=== PATIENT | female | born 1950 | race Caucasian/White ===

== ENCOUNTER 2023-01-11 13:08 | Outpatient (AMB) | payer MEDICARE, SELFPAY ==
[2023-01-11 13:19] VITALS: BP 134/60; PULSE 59; O2SAT 97; BMI 27.6
--- NOTE | 2023-01-11 13:19 | A.OFFVIS_ITS ---
Intake Vital Signs 01/11/23 13:19 Height 5 ft 4 in Weight 160 lb 14.999 oz BMI 27.6 BP 134/60 Blood Pressure Location Lt brachial Position Sitting Pulse 59 Pulse Source Pulse Oximeter Pulse Oximetry (%) 97 Oxygen Delivery Method Room Air Intake Visit Reasons: COPD Surveillance System Monitor Required: No Allergies No Known Allergies Allergy (Verified 01/11/23 13:22) HPI HPI Comments History of Present Illness Details The patient is here for pulmonary evaluation. The patient is a 72-year-old woman with a known history of COPD currently participating in the lung cancer screening program. She was initially found out to have a primary lung cancer in the left lung and she underwent surgery. That was successful surgery she would not need any chemo radiation. 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 She recently had surgery in July 2022 and she is due for CAT scan some other time in January 2023. She does complaint of dyspnea on exertion. Moderate severity. She does not use any inhalers. We did review her PFTs from 2020 where demonstrated a hhyo-fq-oibyrepr COPD with some air trapping. The patient also had as brief walking oximetry and she was visit be visibly dyspneic with a dyspnea score of 5 out of time. The patient maintain a sat of 94%. She will benefit from pulmonary rehabilitation. The patient does not require oxygen supplementation. I do believe that based on her exam that she will benefit from a maintenance inhaler. I did provide a prescription for breztri. She can trial a 4 months to see how she does. [facility] Medical History (Updated 01/11/23 @ 21:17 by Juan Francisco Johnosn MD) Dyspnea Lung cancer COPD (chronic obstructive pulmonary disease) Social History (Updated 01/11/23 @ 13:25 by MIKEY Lozano) Patient Tobacco Use Status: Former Tobacco user Tobacco use type: Cigarette Years Smoked: 40 Years Review of Systems Const Denies fever(s) ENT Denies change in voice and Denies throat swelling Card Denies chest pain and Reports dyspnea on exertion Resp Reports cough and Reports dyspnea on exertion GI Reports no additional complaints Musc Reports no additional complaints Skin/Breast Denies rash Neuro Reports no additional complaints Endo Reports no additional complaints Alon/Lymph Denies lymphadenopathy Aller/Immun Denies throat swelling Physical Exam Vital Signs: Last Vital Signs Pulse 59 01/11/23 13:19 BP 134/60 01/11/23 13:19 Pulse Ox 97 01/11/23 13:19 Oxygen Delivery Method Room Air 01/11/23 13:19 BMI result Body Mass Index 27.6 Const General: comfortable Neck Neck: Yes supple Chest Chest palpation & inspection: normal inspection of the chest Resp Effort & Inspection: normal respiratory effort and prolonged expiratory phase Auscultation: wheezes and diminished lung sounds Cardio Heart sounds: S1 normal heart sound present and S2 normal heart sound present GI Palpation (GI): Soft to palpation Skin General skin exam: no rashes or lesions noted Extrem General: Yes no clubbing, cyanosis or edema Assessment & Plan Assessment & Plan (1) COPD (chronic obstructive pulmonary disease): Code(s): J44.9 - Chronic obstructive pulmonary disease, unspecified Qualifiers: COPD type: emphysema Emphysema type: centrilobular Qualified Code(s): J43.2 - Centrilobular emphysema (2) Dyspnea: Code(s): R06.00 - Dyspnea, unspecified Qualifiers: Dyspnea type: dyspnea on exertion Qualified Code(s): R06.09 - Other forms of dyspnea Plan PFTs start Pulmonary rehab start breztri inhaler (sample) [place] [facility] [place] F/U 2-3 months Orders: Orders Pulmonary Rehab Today J44.9 - Chronic obstructive pulmonary disease, unspecified PFT pulmonary function test Today J44.9 - Chronic obstructive pulmonary disease, unspecified Medications: New kjrkukqjok-vhfmlmqf-imdgexkuzo 160-9-4.8 mcg/actuation (Breztri Aerosphere) 2 inhalations inhalation BID 30 days 10.7 grams 11RF Coding Level of Care Code New Pt Level 4 (81708) Diagnoses Centrilobular emphysema J43.2 COPD type: emphysema Emphysema type: centrilobular Dyspnea on exertion R06.09 Dyspnea type: dyspnea on exertion Time Spent (min) 38
== END 2023-01-11 13:53 | disposition home or self-care (01) ==
PROVIDERS: PCP Internal Medicine; Visit Provider Hospitalist
DX: J43.2 Centrilobular emphysema (principal); R06.09 Other forms of dyspnea
CPT/HCPCS: 99204

== ENCOUNTER → 2023-01-11 13:08 | Outpatient (BNVA) | payer MEDICARE, SELFPAY | PROVIDERS: PCP Internal Medicine; Visit Provider Hospitalist ==

== ENCOUNTER 2023-03-14 13:04 | Outpatient (AMB) | payer MEDICARE, SELFPAY ==
[2023-03-14 13:15] VITALS: PULSE 72; O2SAT 96; BMI 26.1
--- NOTE | 2023-03-14 13:15 | A.OFFVIS_ITS ---
Intake Vital Signs 03/14/23 13:15 Height 5 ft 4 in Weight 152 lb BMI 26.1 Pulse 72 Pulse Source Pulse Oximeter Pulse Oximetry (%) 96 Oxygen Delivery Method Room Air Intake Visit Reasons: COPD Music Worker Required: No Allergies No Known Allergies Allergy (Verified 03/14/23 13:16) HPI HPI Comments History of Present Illness0 Details The patient is a 72-year-old woman with a known history of COPD currently participating in the lung cancer screening program. She was initially found out to have a primary lung cancer in the left lung and she underwent surgery. That was successful surgery she would not need any chemo radiation. 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 She recently had surgery in July 2022 and she is due for CAT scan some other time in January 2023. She does complaint of dyspnea on exertion. Moderate severity. She does not use any inhalers. We did review her PFTs from 2020 where demonstrated a zbxm-cc-dyzcemma COPD with some air trapping. The patient also had as brief walking oximetry and she was visit be visibly dyspneic with a dyspnea score of 5 out of time. The patient maintain a sat of 94%. She will benefit from pulmonary rehabilitation. The patient does not require oxygen supplementation. I do believe that based on her exam that she will benefit from a maintenance inhaler. I did provide a prescription for breztri. She can trial for a month to see how she does. 03/14/2023 the patient is here for a pulm onary follow-up visit. Overall the patient is doing very well. She has been participating in pulmonary rehabilitation and has been very helpful. In addition to that she has been using the maintenance inhaler with good effect. She is yet to actually get a prescription so hopefully it does not too expensive. If it is she can always call the office we can try to find something more reasonable. In the meantime she did underwent CT scan of the chest at [facility]. She did have postoperative changes. Although, she is had significant weight loss and therefore she was found for PET scan for restaging. I did personally review the PET scan although has not been officially read. I did not see any significant activity in the thorax which is reassuring. I did see that there was significant muscle inflammation throughout. She does take a statin so I wonder if this is related to a medication effect or if there was a muscular inflammatory condition going on. She will be following up with her thoracic surgeon and also should follow-up with primary care. Otherwise the patient is doing well from a respiratory status follow-up in 6 months. [facility] Medical History (Updated 01/11/23 @ 21:17 by Juan Francisco Johnson MD) Dyspnea Lung cancer COPD (chronic obstructive pulmonary disease) Social History (Updated 01/11/23 @ 13:25 by MIKEY Lozano) Patient Tobacco Use Status: Former Tobacco user Tobacco use type: Cigarette Years Smoked: 40 Years Review of Systems Const Denies fever(s), Reports poor appetite and Reports weight loss ENT Denies change in voice and Denies throat swelling Card Denies chest pain and Reports dyspnea on exertion Resp Reports cough and Reports dyspnea on exertion GI Reports no additional complaints Musc Reports as per HPI, Reports back pain and Reports myalgias Skin/Breast Denies rash Neuro Reports no additional complaints Endo Reports no additional complaints Alon/Lymph Denies lymphadenopathy Aller/Immun Denies throat swelling Physical Exam Vital Signs: Last Vital Signs Pulse 72 03/14/23 13:15 Pulse Ox 96 03/14/23 13:15 Oxygen Delivery Method Room Air 03/14/23 13:15 BMI result Body Mass Index 26.1 Const General: comfortable Neck Neck: Yes supple Chest Chest palpation & inspection: normal inspection of the chest Resp Effort & Inspection: normal respiratory effort Auscultation: no wheezes and diminished lung sounds Cardio Heart sounds: S1 normal heart sound present and S2 normal heart sound present GI Palpation (GI): Soft to palpation Skin General skin exam: no rashes or lesions noted Extrem General: Yes no clubbing, cyanosis or edema Assessment & Plan Assessment & Plan (1) COPD (chronic obstructive pulmonary disease): Code(s): J44.9 - Chronic obstructive pulmonary disease, unspecified Qualifiers: COPD type: emphysema Emphysema type: centrilobular Qualified Code(s): J43.2 - Centrilobular emphysema (2) Dyspnea: Code(s): R06.00 - Dyspnea, unspecified Qualifiers: Dyspnea type: dyspnea on exertion Qualified Code(s): R06.09 - Other forms of dyspnea Plan continue Pulmonary rehab continue Breztri inhaler CT chest at [facility] [place] likely in 6 months start azithromycin MWF x 6-8 weeks reviewed PET scan. Has not been officially read, but, appears to have significant muscle related inflammation. Needs to have that address ?statin related or a connective tissue process. F/U 6 months Medications: New azithromycin Take 1 tablet on Tuesday/Tuesday/Tuesday 250 mg PO 3XW 28 days 12 tabs 1RF K21.9 - Gastro-esophageal reflux disease without esophagitis Coding Level of Care Code Est Pt Level 4 (36397) Diagnoses Centrilobular emphysema J43.2 COPD type: emphysema Emphysema type: centrilobular Dyspnea on exertion R06.09 Dyspnea type: dyspnea on exertion Time Spent (min) 17
== END 2023-03-14 13:39 | disposition home or self-care (01) ==
PROVIDERS: PCP Internal Medicine; Visit Provider Hospitalist
DX: J43.2 Centrilobular emphysema (principal); R06.09 Other forms of dyspnea
CPT/HCPCS: 99214

== ENCOUNTER → 2023-03-14 13:04 | Outpatient (BNVA) | payer MEDICARE, SELFPAY | PROVIDERS: PCP Internal Medicine; Visit Provider Hospitalist | DX: J44.9 Chronic obstructive pulmonary disease, unspecified (principal); J43.2 Centrilobular emphysema; R06.00 Dyspnea, unspecified; C34.12 Malignant neoplasm of upper lobe, left bronchus or lung; C34.11 Malignant neoplasm of upper lobe, right bronchus or lung | CPT/HCPCS: 99212 ==

== ENCOUNTER 2023-05-26 08:30 | Outpatient (RCR) | payer MEDICARE, SELFPAY | END 2023-06-13 10:12 | disposition home or self-care (01) | LOC: HO.PR 08:30 | PROVIDERS: PCP Internal Medicine; Visit Provider Hospitalist | DX: J44.9 Chronic obstructive pulmonary disease, unspecified (principal) | CPT/HCPCS: 94625; 94626; 99215 ==

== ENCOUNTER 2023-09-13 13:46 | Outpatient (AMB) | payer MEDICARE, SELFPAY ==
[2023-09-13 13:53] VITALS: PULSE 62; O2SAT 98; BMI 26.6
--- NOTE | 2023-09-13 13:53 | MHC.OFFVIS ---
Vital Signs 09/13/23 13:53 Height 5 ft 4 in Weight 155 lb BMI 26.6 Pulse 62 Pulse Source Pulse Oximeter Pulse Oximetry (%) 98 Oxygen Delivery Method Room Air Intake Visit Reasons: COPD Supreme Court Judge Required: No Allergies No Known Allergies Allergy (Verified 09/13/23 13:54) HPI Comments Details: The patient is a 73-year-old woman with a known history of COPD currently participating in the lung cancer screening program. She was initially found out to have a primary lung cancer in the left lung and she underwent surgery. That was successful surgery she would not need any chemo radiation. 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 She recently had surgery in July 2022 and she is due for CAT scan some other time in January 2023. She does complaint of dyspnea on exertion. Moderate severity. She does not use any inhalers. We did review her PFTs from 2020 where demonstrated a rarq-vg-ejofamgb COPD with some air trapping. The patient also had as brief walking oximetry and she was visit be visibly dyspneic with a dyspnea score of 5 out of time. The patient maintain a sat of 94%. She will benefit from pulmonary rehabilitation. The patient does not require oxygen supplementation. I do believe that based on her exam that she will benefit from a maintenance inhaler. I did provide a prescription for breztri. She can trial for a month to see how she does. 03/14/2023 the patient is here for a pulmonary follow-up visit. Overall the patient is doing very well. She has been participating in pulmonary rehabilitation and has been very helpful. In addition to that she has been using the maintenance inhaler with good effect. She is yet to actually get a prescription so hopefully it does not too expensive. If it is she can always call the office we can try to find something more reasonable. In the meantime she did underwent CT scan of the chest at [facility]. She did have postoperative changes. Although, she is had significant weight loss and therefore she was found for PET scan for restaging. I did personally review the PET scan although has not been officially read. I did not see any significant activity in the thorax which is reassuring. I did see that there was significant muscle inflammation throughout. She does take a statin so I wonder if this is related to a medication effect or if there was a muscular inflammatory condition going on. She will be following up with her thoracic surgeon and also should follow-up with primary care. Otherwise the patient is doing well from a respiratory status follow-up in 6 months. 09/13/2023 the patient is here for a pulmonary follow-up visit. Overall she is doing very well. She is continued to participate in pulmonary rehabilitation. She is found it very affecting beneficial. She did finish the 1st part and now she is on maintenance. She is going to continue to participate. As far as inhaler she has Breztri, although is not been covered anymore. The patient does have a prescription at home. She is using this time. I think is reasonable specially with a history atrial fibrillation. Respiratory reina she is doing well. If she starts noticing that she needs a more often them will talk about a different type of maintenance medication that she can not tolerate little better with her AFib. The patient does have a CT scan of chest scheduled at [facility]. It will be for next week. Will have to follow-up after that. She is also following closely with thoracic surgery. She does have a ground glassy lesion in the upper lung area. The PET scan was reassuring. She still having some muscle discomfort. She was taken off the statin. She will follow-up closely with her primary care. [facility] Medical History (Updated 01/11/23 @ 21:17 by Juan Francisco Johnson MD) Dyspnea Lung cancer COPD (chronic obstructive pulmonary disease) Social History (Updated 01/11/23 @ 13:25 by MIKEY Lozano) Patient Tobacco Use Status: Former Tobacco user Tobacco use type: Cigarette Years Smoked: 40 Years Review of Systems Const Denies fever(s) ENT Denies change in voice and Denies throat swelling Card Denies chest pain and Reports dyspnea on exertion Resp Reports cough and Reports dyspnea on exertion GI Reports no additional complaints Musc Reports as per HPI, Reports back pain and Reports myalgias Skin/Breast Denies rash Neuro Reports no additional complaints Endo Reports no additional complaints Alon/Lymph Denies lymphadenopathy Aller/Immun Denies throat swelling Physical Exam Vital Signs: Last Vital Signs Pulse 62 09/13/23 13:53 Pulse Ox 98 09/13/23 13:53 Oxygen Delivery Method Room Air 09/13/23 13:53 BMI result Body Mass Index 26.6 Const General: comfortable Neck Neck: Yes supple Chest Chest palpation & inspection: normal inspection of the chest Resp Effort & Inspection: normal respiratory effort Auscultation: no wheezes and diminished lung sounds Cardio Heart sounds: S1 normal heart sound present and S2 normal heart sound present GI Palpation (GI): Soft to palpation Skin General skin exam: no rashes or lesions noted Extrem General: Yes no clubbing, cyanosis or edema Assessment & Plan Assessment & Plan (1) COPD (chronic obstructive pulmonary disease): Code(s): J44.9 - Chronic obstructive pulmonary disease, unspecified Category: Medical Qualifiers: COPD type: emphysema Emphysema type: centrilobular Qualified Code(s): J43.2 - Centrilobular emphysema (2) Dyspnea: Code(s): R06.00 - Dyspnea, unspecified Category: Medical Qualifiers: Dyspnea type: dyspnea on exertion Qualified Code(s): R06.09 - Other forms of dyspnea Plan continue Pulmonary rehab continue Breztri inhaler LJ as needed CT chest at [facility] [place] F/U 6 months with PFTs Orders: Orders PFT pulmonary function test 9 Months J43.2 - Centrilobular emphysema Coding Level of Care Code Est Pt Level 4 (61265) Diagnoses Centrilobular emphysema J43.2 COPD type: emphysema Emphysema type: centrilobular Dyspnea on exertion R06.09 Dyspnea type: dyspnea on exertion Time Spent (min) 17
== END 2023-09-13 14:10 | disposition home or self-care (01) ==
PROVIDERS: PCP Internal Medicine; Visit Provider Hospitalist
DX: J43.2 Centrilobular emphysema (principal); R06.09 Other forms of dyspnea
CPT/HCPCS: 99214

== ENCOUNTER → 2023-09-13 13:46 | Outpatient (BNVA) | payer MEDICARE, SELFPAY | PROVIDERS: PCP Internal Medicine; Visit Provider Hospitalist | DX: J43.2 Centrilobular emphysema (principal); R06.09 Other forms of dyspnea | CPT/HCPCS: 99212 ==

== ENCOUNTER 2024-06-06 09:50 | Outpatient (REF) | payer MEDICARE, SELFPAY ==
[2024-06-06 09:44] VITALS: PULSE 86; O2SAT 99
--- NOTE | 2024-06-06 10:26 | PFT_ITS ---
Flows: FEV1: 81 % of predicted at 1.70 L FVC: 101 % of predicted at 2.73 L FEV1/FVC: 62 % Bronchodilator response: Absent Volumes: Total lung capacity: 83 % of predicted at 4.01 L Residual volume: 70 % of predicted at 1.38 L Slow vital capacity: 93 % of predicted at 2.63 L Expiratory reserve volume: 122 % of predicted at 0.83 L Diffusion capacity: Mildly decreased. Impression: Btdt-ia-jwzopmyl obstructive ventilatory defect with no bronchodilator response. Decreased diffusion capacity suggests emphysema. MTDD
--- OUTSIDE RECORDS SUMMARY | 2024-06-06 11:36 | XMS_ITS | Clinical Summary ---
Author Organization [facility] Address [address] [place] [address] Care Team Providers Care Joint Terminal Attack Controller Name Role Phone Jw Sotelo MD Primary Care Provider [phone] Social History Tobacco Use Types Packs/Day Years Used Date Smoking Tobacco: Never Assessed Comments Unknown Sex and Gender Information Value Date Recorded Sex Assigned at Not on file Legal Sex Female 10:45 AM EST Gender Identity Not on file Sexual Orientation Not on file Plan of Treatment Health Maintenance Due Date Last Done Comments Breast Cancer Screening 1950 DTaP,Tdap,and Td Vaccines (1 - Tdap) 06/09/1970 Pneumococcal Vaccine: 50+ Years (1 of 2 - PCV) 06/09/1970 Zoster Vaccines (1 of 2) 06/09/1970 Cholesterol Screening (Lipid Panel) 03/15/2022 Colorectal Cancer Screening: Colonoscopy 03/15/2022 Depression Screening 03/15/2022 Falls Risk Assessment 03/15/2022 Hepatitis C Screening 03/15/2022 Osteoporosis Screening (Bone Density Screening) 03/15/2022 Social Influencers of Health Screening 03/15/2022 COVID-19 Vaccine ( season) 2023 02/02/2021, 06/14/2020, 05/24/2020 Influenza Vaccine (#1) 2023 , 02/15/2019, 02/08/2018, Additional history exists Hypertension/CHF/CAD Annual BMP Blood Test 04/20/2024 RSV Immunization Patients 60+ Years Old (1 - 1-dose 75+ series) 06/09/2026 HIB Vaccines Aged Out No longer eligi ble based on patient's age to complete this topic HPV Vaccines Aged Out No longer eligi ble based on patient's age to complete this topic Hepatitis A Vaccines Aged Out No long er eligible based on patient's age to complete this topic Hepatitis B Vaccines Aged Out No long er eligible based on patient's age to complete this topic IPV Vaccines Aged Out No longer eligi ble based on patient's age to complete this topic MMR Vaccines Aged Out No longer eligi ble based on patient's age to complete this topic Meningococcal ACWY Vaccine Aged Out N o longer eligible based on patient's age to complete this topic Meningococcal B Vacine Aged Out No lo nger eligible based on patient's age to complete this topic RSV Immunization Patients Under 20 months Aged Out No longer eligible based on patient's age to complete this topic Varicella Vaccines Aged Out No longer eligible based on patient's age to complete this topic Care Teams Joint Terminal Attack Controller Relationship Specialty Start Date End Date Jw Sotelo MD [address] [place], [place] PCP - General Statement Clerk 05/03/17
--- OUTSIDE RECORDS SUMMARY | 2024-06-06 11:36 | XMS_ITS | Clinical Summary ---
Author Organization [facility] Address [address] [place] [address] Care Team Providers Care Tractor Trailer Driver Name Role Phone Jw Sotelo MD Primary Care Provider Allergies No known active allergies Medications Medication Sig Dispensed Refills Start Date End Date Status simvastatin (ZOCOR) tablet 40 mg Take 40 mg by mouth every night at bedtime. 0 Active metoprolol tartrate (LOPRESSOR) 100 MG tablet Take by mouth 2 (two) times a day. 0 Active FLUoxetine (PROZAC) 20 MG capsule Take 20 mg by mouth daily. 0 Active hydrochlorothiazide (HYDRODIURIL) tablet 25 mg Take 25 mg by mouth daily. 0 Active aspirin EC 81 MG tablet Take 81 mg by mouth daily. 0 Active Active Problems Problem Noted Date Diagnosed Date Leukocytosis 05/03/2017 Tobacco use 05/03/2017 Weight loss 05/03/2017 Social History Tobacco Use Types Packs/Day Years Used Date Smoking Tobacco: Every Day Cigarettes 1 Smokeless Tobacco: Never Alcohol Use Standard Drinks/Week Comments Yes 1 (1 standard drink = 0.6 oz pur e alcohol) Sex and Gender Information Value Date Recorded Sex Assigned at Not on file Gender Identity Not on file Sexual Orientation Not on file Job Start Date Occupation Industry Not on file Not on file Not on file Last Filed Vital Signs Vital Sign Reading Time Taken Comments Blood Pressure 168/68 10/31/2018 8:56 AM EDT Pulse 67 10/31/2018 8:56 AM EDT Temperature 36.3 ??C (97.3 ??F) 10/31/2018 8:56 AM ED T Respiratory Rate - - Oxygen Saturation - - Inhaled Oxygen Concentration - - Weight 76.2 kg (168 lb) 10/31/2018 8:56 AM EDT Height 161.3 cm (5' 3.5 ) 10/31/2018 8:56 AM EDT Body Mass Index 29.29 10/31/2018 8:56 AM EDT Plan of Treatment Health Maintenance Due Date Last Done Comments Hepatitis C Screening 1950 COVID-19 Vaccine (#1) 1950 Pneumococcal Vaccine (1 of 2 - PCV) 06/09/1957 Depression Screening 1963 Preventative Health Evaluation 06/09/1969 DTap / Tdap / Td (1 - Tdap) 06/09/1970 Colon Cancer Screening (Colonoscopy) 06/09/1996 Breast Cancer Screening (Mammogram) 06/09/2001 Shingrix-Zoster Vaccine (1 of 2) 06/09/2001 Fall Risk Assessment 06/09/2016 Osteoporosis Screening (DEXA Scan) 06/09/2016 Influenza Vaccine (#1) 2023 RSV Adult > 60+ Yrs or Pregn ant (1 - 1-dose 75+ series) 06/09/2026 Hepatitis B Vaccines Aged Out No long er eligible based on patient's age to complete this topic RSV Ped < 20 months Aged Out No longe r eligible based on patient's age to complete this topic Care Teams Tractor Trailer Driver Relationship Specialty Start Date End Date Jw Sotelo MD [address] [facility] [address] [place], [place] [id number] PCP - General Water Aerobics Instructor 05/03/17
== END 2024-06-06 09:51 | disposition home or self-care (01) ==
LOC: HO.RESP 09:50
PROVIDERS: PCP Internal Medicine; Visit Provider Hospitalist
DX: J43.2 Centrilobular emphysema (principal)
CPT/HCPCS: 94010; 94640; 94727; 94729

== ENCOUNTER → 2024-06-06 10:26 | Outpatient (BNV) | payer MEDICARE, SELFPAY | PROVIDERS: PCP Internal Medicine; Visit Provider Internal Medicine Pulmonary Disease | DX: J43.2 Centrilobular emphysema (principal) | CPT/HCPCS: 94060; 94727; 94729 ==

== ENCOUNTER 2024-07-04 10:22 | Outpatient (AMB) | payer MEDICARE, SELFPAY ==
[2024-07-04 10:27] VITALS: BP 138/60; PULSE 89; O2SAT 100; BMI 25.0
--- NOTE | 2024-07-04 10:27 | A.OFFVIS_ITS ---
Vital Signs 07/04/24 10:27 Height 5 ft 4 in Weight 145 lb 8.081 oz BMI 25.0 BP 138/60 Blood Pressure Location Rt brachial Position Sitting Pulse 89 Pulse Source Pulse Oximeter Pulse Oximetry (%) 100 Oxygen Delivery Method Room Air Intake Visit Reasons: COPD/PFT Follow Up Allergies No Known Allergies Allergy (Verified 07/04/24 10:30) HPI Comments Details: The patient is a 74-year-old woman with a known history of COPD currently participating in the lung cancer screening program. She was initially found out to have a primary lung cancer in the left lung and she underwent surgery. That was successful surgery she would not need any chemo radiation. 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 She recently had surgery in July 2022 and she is due for CAT scan some other time in January 2023. She does complaint of dyspnea on exertion. Moderate severity. She does not use any inhalers. We did review her PFTs from 2020 where demonstrated a iwot-qv-zehlipqr COPD with some air trapping. The patient also had as brief walking oximetry and she was visit be visibly dyspneic with a dyspnea score of 5 out of time. The patient maintain a sat of 94%. She will benefit from pulmonary rehabilitation. The patient does not require oxygen supplementation. I do believe that based on her exam that she will benefit from a maintenance inhaler. I did provide a prescription for breztri. She can trial for a month to see how she does. 03/14/2023 the patient is here for a pulmonary follow-up visit. Overall the patient is doing very well. She has been participating in pulmonary rehabilitation and has been very helpful. In addition to that she has been using the maintenance inhaler with good effect. She is yet to actually get a prescription so hopefully it does not too expensive. If it is she can always call the office we can try to find something more reasonable. In the meantime she did underwent CT scan of the chest at [facility]. She did have postoperative changes. Although, she is had significant weight loss and therefore she was found for PET scan for restaging. I did personally review the PET scan although has not been officially read. I did not see any significant activity in the thorax which is reassuring. I did see that there was significant muscle inflammation throughout. She does take a statin so I wonder if this is related to a medication effect or if there was a muscular inflammatory condition going on. She will be following up with her thoracic surgeon and also should follow-up with primary care. Otherwise the patient is doing well from a respiratory status follow-up in 6 months. 09/13/2023 the patient is here for a pulmonary follow-up visit. Overall she is doing very well. She is continued to participate in pulmonary rehabilitation. She is found it very affecting beneficial. She did finish the 1st part and now she is on maintenance. She is going to continue to participate. As far as inhaler she has Breztri, although is not been covered anymore. The patient does have a prescription at home. She is using this time. I think is reasonable specially with a history atrial fibrillation. Respiratory reina she is doing well. If she starts noticing that she needs a more often them will talk about a different type of maintenance medication that she can not tolerate little better with her AFib. The patient does have a CT scan of chest scheduled at [facility]. It will be for next week. Will have to follow-up after that. She is also following closely with thoracic surgery. She does have a ground glassy lesion in the upper lung area. The PET scan was reassuring. She still having some muscle discomfort. She was taken off the statin. She will follow-up closely with her primary care. 07/04/2024 the patient is here for a pulmonary follow-up visit. Overall the patient has been doing well. She did have a bad urinary infection that resulted in urosepsis. She had been admitted briefly to [facility] for her significant complicated infection. Did not involve her lungs. Clinically she is doing okay. Unfortunately the Breztri inhaler was not covered. She does have a rescue inhaler that she uses regularly. The patient needs to be on a maintenance inhaler with significant chest tightness and wheezing. Vlqh-gj-satuxeqd severity. Will go ahead and send Trelegy to the pharmacy as she recently changed insurance and likely will be covered at this time. If is too expensive she will call so I can send her sometimes. The patient should continue to recover. Will follow-up with PFTs in the fall. She would benefit from pulmonary rehabilitation. She also has a CT scan scheduled for September of 2024 ordered by [facility]. Will follow-up with her in the fall and review those results as well. [facility] Medical History (Updated 01/11/23 @ 21:17 by Juan Francisco Johnson MD) Dyspnea Lung cancer COPD (chronic obstructive pulmonary disease) Social History Patient Tobacco Use Status: Former Tobacco user Tobacco use type: Cigarette Years Smoked: 40 Years Review of Systems Const Denies fever(s) ENT Denies change in voice and Denies throat swelling Card Denies chest pain and Reports dyspnea on exertion Resp Reports cough and Reports dyspnea on exertion GI Reports no additional complaints Musc Reports as per HPI, Reports back pain and Reports myalgias Skin/Breast Denies rash Neuro Reports no additional complaints Endo Reports no additional complaints Alon/Lymph Denies lymphadenopathy Aller/Immun Denies throat swelling Physical Exam Vital Signs: Last Vital Signs Pulse 89 07/04/24 10:27 BP 138/60 07/04/24 10:27 Pulse Ox 100 07/04/24 10:27 Oxygen Delivery Method Room Air 07/04/24 10:27 BMI result Body Mass Index 25.0 Const General: comfortable Neck Neck: Yes supple Chest Chest palpation & inspection: normal inspection of the chest Resp Effort & Inspection: normal respiratory effort Auscultation: no wheezes and diminished lung sounds Cardio Heart sounds: S1 normal heart sound present and S2 normal heart sound present GI Palpation (GI): Soft to palpation Skin General skin exam: no rashes or lesions noted Extrem General: Yes no clubbing, cyanosis or edema Assessment & Plan Assessment & Plan (1) COPD (chronic obstructive pulmonary disease): Code(s): J44.9 - Chronic obstructive pulmonary disease, unspecified Category: Medical Qualifiers: COPD type: emphysema Emphysema type: centrilobular Qualified Code(s): J43.2 - Centrilobular emphysema (2) Dyspnea: Code(s): R06.00 - Dyspnea, unspecified Category: Medical Qualifiers: Dyspnea type: dyspnea on exertion Qualified Code(s): R06.09 - Other forms of dyspnea Plan continue Pulmonary rehab when ready start Trelegy daily LJ as needed CT chest at [facility] September 2024 F/U 6 months Medications: New xpzfkuvjqmf-nhhpyhreq-spotjhci 200-62.5-25 mcg (Trelegy Ellipta) 1 inh inhalation DAILY 60 ea 12RF 30 days Coding Level of Care Code Est Pt Level 4 (06742) Diagnoses Centrilobular emphysema J43.2 COPD type: emphysema Emphysema type: centrilobular Dyspnea on exertion R06.09 Dyspnea type: dyspnea on exertion Time Spent (min) 16
--- OUTSIDE RECORDS SUMMARY | 2024-07-04 12:08 | XMS_ITS | Clinical Summary ---
Author Organization [facility] Address [address] [place] [address] Care Team Providers Care Animated Cartoons Painter Name Role Phone Jw Sotelo MD Primary Care Provider [phone] Allergies No known active allergies Medications Medication [...] age to complete this topic Care Teams Animated Cartoons Painter Relationship Specialty Start Date End Date Jw Sotelo MD [address] [facility] [address] [place], [place] [id number] PCP - General File Keeper 05/03/17
--- OUTSIDE RECORDS SUMMARY | 2024-07-04 12:08 | XMS_ITS | Clinical Summary ---
Author Organization [facility] Address [address] [place] [address] Care Team Providers Care Sales Process Manager Name Role Phone Jw Sotelo MD Primary Care Provider [phone] Social History Tobacco Use Types Packs/Day Years [...] Years (1 of 2 - PCV) 06/09/1970 Cholesterol Screening (Lipid Panel) 03/15/2022 Colorectal Cancer Screening: Colonoscopy 03/15/2022 Depression Screening 03/15/2022 Falls Risk Assessment 03/15/2022 Hepatitis C Screening 03/15/2022 Osteoporosis Screening (Bone Density Screening) 03/15/2022 Social Influencers of Health Screening 03/15/2022 COVID-19 Vaccine ( season) 2023 01/19/2023, 02/02/2021, 06/14/2020, Additional history exists Hypertension/CHF/CAD Annual BMP Blood Test 04/20/2024 RSV Immunization Patients 60+ Years Old Completed 01/31/2023 Zoster Vaccines Completed 06/13/2023, 03/30/2023 Influenza Vaccine Completed 02/06/2024, , 02/17/2022, Additional history exists HIB Vaccines Aged Out No longer eligi [...] age to complete this topic Care Teams Sales Process Manager Relationship Specialty Start Date End Date Jw Sotelo MD [address] PCP - General Crossing Supervisor 05/03/17
== END 2024-07-04 11:00 | disposition home or self-care (01) ==
LOC: HO.HPS 10:23
PROVIDERS: PCP Internal Medicine; Visit Provider Hospitalist
DX: J43.2 Centrilobular emphysema (principal); R06.09 Other forms of dyspnea
CPT/HCPCS: 99214

== ENCOUNTER → 2024-07-04 10:22 | Outpatient (BNVA) | payer MEDICARE, SELFPAY | PROVIDERS: PCP Internal Medicine; Visit Provider Hospitalist | DX: J43.2 Centrilobular emphysema (principal); R06.09 Other forms of dyspnea | CPT/HCPCS: 99212 ==

== ENCOUNTER 2025-02-20 10:19 | Outpatient (AMB) | payer MEDICARE, SELFPAY ==
[2025-02-20 10:21] VITALS: BP 102/58; PULSE 77; O2SAT 99; BMI 22.9
--- NOTE | 2025-02-20 10:21 | A.OFFVIS_ITS ---
Vital Signs 02/20/25 10:21 Height 5 ft 4 in Weight 133 lb 6.075 oz BMI 22.9 BP 102/58 L Blood Pressure Location Lt brachial Position Sitting Pulse 77 Pulse Source Pulse Oximeter Pulse Oximetry (%) 99 Oxygen Delivery Method Room Air Intake Visit Reasons: COPD Photography Coordinator Required: No Accompanied by: Self / Same As Patient Allergies No Known Allergies Allergy (Verified 02/20/25 10:24) HPI Comments Details: The patient is a 74-year-old woman with a known history of COPD currently participating in the lung cancer screening program. She was initially found out to have a primary lung cancer in the left lung and she underwent surgery. That was successful surgery she would not need any chemo radiation. 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 She recently had s urgery in July 2022 and she is due for CAT scan some other time in January 2023. She does complaint of dyspnea on exertion. Moderate severity. She does not use any inhalers. We did review her PFTs from 2020 where demonstrated a awfj-nm-yhhfgfts COPD with some air trapping. The patient also had as brief walking oximetry and she was visit be visibly dyspneic with a dyspnea score of 5 out of time. The patient maintain a sat of 94%. She will benefit from pulmonary rehabilitation. The patient does not require oxygen supplementation. I do believe that based on her exam that she will benefit from a maintenance inhaler. I did provide a prescription for breztri. She can trial for a month to see how she does. 03/14/2023 the patient is here for a pulmonary follow-up visit. Overall the pa yulisa is doing very well. She has been participating in pulmonary rehabilitation and has been very helpful. In addition to that she has been using the maintenance inhaler with good effect. She is yet to actually get a prescription so hopefully it does not too expensive. If it is she can always call the office we can try to find something more reasonable. In the meantime she did underwent CT scan of the chest at [facility]. She did have postoperative changes. Although, she is had significant weight loss and therefore she was found for PET scan for restaging. I did personally review the PET scan although has not been officially read. I did not see any significant activity in the thorax which is reassuring. I did see that there was significant muscle inflammation throughout. She does take a statin so I wonder if this is related to a medication effect or if there was a muscular inflammatory condition going on. She will be following up with her thoracic surgeon and also should follow-up with primary care. Otherwise the patient is doing well from a respiratory status follow-up in 6 months. 09/13/2023 the patient is here for a pulmonary follow-up visit. Overall she is doing very well. She is continued to participate in pulmonary rehabilitation. She is found it very affecting beneficial. She did finish the 1st part and now she is on maintenance. She is going to continue to participate. As far as inhaler she has Breztri, although is not been covered anymore. The patient does have a prescription at home. She is using this time. I think is reasonable specially with a history atrial fibrillation. Respiratory reina she is doing well. If she starts noticing that she needs a more often them will talk about a different type of maintenance medication that she can not tolerate little better with her AFib. The patient does have a CT scan of chest scheduled at [facility]. It will be for next week. Will have to follow-up after that. She is also follo wing closely with thoracic surgery. She does have a ground glassy lesion in the upper lung area. The PET scan was reassuring. She still having some muscle discomfort. She was taken off the statin. She will follow-up closely with her primary care. 07/04/2024 the patient is here for a pulmonary follow-up visit. Overall the patient has been doing well. She did have a bad urinary infection that resulted in urosepsis. She had been admitted briefly to [facility] for her significant complicated infection. Did not involve her lungs. Clinically she is doing okay. Unfortunately the Breztri inhaler was not covered. She does have a rescue inhaler that she uses regularly. The patient needs to be on a maintenance inhaler with significant chest tightness and wheezing. Mild-to-m oderate severity. Will go ahead and send Trelegy to the pharmacy as she recently changed insurance and likely will be covered at this time. If is too expensive she will call so I can send her sometimes. The patient should continue to recover. Will follow-up with PFTs in the fall. She would benefit from pulmonary rehabilitation. She also has a CT scan scheduled for September of 2024 ordered by [facility]. Will follow-up with her in the fall and review those results as well. 02/20/2025 the patient is here for pulmonary follow-up visit. Overall the patient has been doing okay. She did have a CAT scan of the chest through the thoracic surgery office at [facility]. I did personally review. The patient does have postoperative changes. She does has some new nodules and also has a nodule in the right middle lobe that grew from 3 mm to 5 mm. She will be following up with the thoracic surgery Department soon. She will likely need another CAT scan in 3-6 months. For now though she is taking the Trelegy although not regularly. I talked about the importance of taking it regularly. It also complaining of productive cough and will start her on azithromycin to see if we can decrease some of the inflammation of the lungs. If the azithromycin worse she can always call to see if we can extended but she will need an EKG. The patient also has been smoking marijuana. We did ask her to refrain from any smoke as it is affecting her lungs and causing inflammation. She can try the cannabinoid tincture or edibles to try to minimize on the smoke exposure. She denies otherwise any secondhand smoke. [facility] Medical History (Updated 01/11/23 @ 21:17 by Juan Francisco Johnson MD) Dyspnea Lung cancer COPD (chronic obstructive pulmonary disease) Social History Patient Tobacco Use Status: Former Tobacco user Tobacco use type: Cigarette Years Smoked: 40 Years Review of Systems Const Denies fever(s) ENT Denies change in voice and Denies throat swelling Card Denies chest pain and Reports dyspnea on exertion Resp Reports cough and Reports dyspnea on exertion GI Reports no additional complaints Musc Reports as per HPI, Reports back pain and Reports myalgias Skin/Breast Denies rash Neuro Reports no additional complaints Endo Reports no additional complaints Alon/Lymph Denies lymphadenopathy Aller/Immun Denies throat swelling Physical Exam Vital Signs: Last Vital Signs Pulse 77 02/20/25 10:21 BP 102/58 L 02/20/25 10:21 Pulse Ox 99 02/20/25 10:21 Oxygen Delivery Method Room Air 02/20/25 10:21 BMI result Body Mass Index 22.9 Const General: comfortable Neck Neck: Yes supple Chest Chest palpation & inspection: normal inspection of the chest Resp Effort & Inspection: normal respiratory effort Auscultation: no wheezes and diminished lung sounds Cardio Heart sounds: S1 normal heart sound present and S2 normal heart sound present GI Palpation (GI): Soft to palpation Skin General skin exam: no rashes or lesions noted Extrem General: Yes no clubbing, cyanosis or edema Assessment & Plan Assessment & Plan (1) COPD (chronic obstructive pulmonary disease): Code(s): J44.9 - Chronic obstructive pulmonary disease, unspecified Category: Medical Qualifiers: COPD type: emphysema Emphysema type: centrilobular Qualified Code(s): J43.2 - Centrilobular emphysema (2) Dyspnea: Code(s): R06.00 - Dyspnea, unspecified Category: Medical Qualifiers: Dyspnea type: dyspnea on exertion Qualified Code(s): R06.09 - Other forms of dyspnea Plan continue Pulmonary rehab when ready Trelegy daily LJ as needed start Azithromycin MWF x [address] chest at [facility] Spring 2025 F/U 8 months Medications: New azithromycin Take 1 tablet on Tuesday/Tuesday/Tuesday 250 mg PO 3XW 12 tabs 0RF 28 days K21.9 - Gastro-esophageal reflux disease without esophagitis Coding Level of Care Code Est Pt Level 4 (80698) Complex EM visit Add On G2211 Diagnoses Centrilobular emphysema J43.2 COPD type: emphysema Emphysema type: centrilobular Dyspnea on exertion R06.09 Dyspnea type: dyspnea on exertion Time Spent (min) 17
--- OUTSIDE RECORDS SUMMARY | 2025-02-20 12:14 | XMS_ITS | Clinical Summary ---
Author Organization [facility] Address [address] [address] Phone Care Team Providers Care Internet Developer Name Role Phone MartínGabriel dudley Erick ALONSO Primary Care Provider [phone] Allergies No known active allergies Medications dilTIAZem CD (CARDIZEM CD) 240 MG 24 hr capsule 08/01/2024 Active Rosuvastatin Calcium 10 MG capsule sprinkle Take 10 mg by mouth 12/26/2023 Active metoprolol tartrate (LOPRESSOR) 100 MG tablet Take by mouth in the morning and in the evening. Active Eliquis 5 MG tablet Take 1 tablet by mouth 06/06/2024 Active hydroCHLOROthia zide 25 MG tablet Take 25 mg by mouth 04/28/2020 Active Cholecalciferol (Vitamin D-3) 25 MCG (1000 UT) capsule Take by mouth Active Cranberry 250 MG capsule Take by mouth Active CRANBERRY-D MANNOSE PO Take 2,000 mg by mouth Active Active Problems Problem Noted Date Diagnosed Date Stage 3a chronic kidney disease 10/08/2024 Primary hypertension 10/02/2024 Immunizations Immunization Administration Dates Next Due Pfizer SARS-COV-2 02/02/2021,06/14/2020,05/24/19 21 Shingrix 06/13/2023,03/30/2023 Family History Relation Status Comments Father Mother Social History Tobacco Use Types Packs/Day Years Used Date Smoking Tobacco: Never Smokeless Tobacco: Never Tobacco Cessation:Counseling Given: Not Answered Comments Unknown Sex and Gender Information Value Date Recorded Sex Assigned at Female 11/21/2024 1:13 PM EDT Legal Sex Female 9:11 AM EDT Gender Identity Female 11/21/2024 1:13 PM EDT Sexual Orientation Not on file Last Filed Vital Signs Vital Sign Reading Time Taken Comments Blood Pressure 124/64 10/08/2024 2:14 PM EDT Pulse 88 10/08/2024 2:14 PM EDT Temperature - - Respiratory Rate - - Oxygen Saturation 99% 10/08/2024 2:14 PM EDT Inhaled Oxygen Concentration - - Weight 62.3 kg (137 lb 6.4 oz) 10/08/2024 2:14 P M EDT Height - - Body Mass Index - - Plan of Treatment Upcoming Encounters Date Type Department Care Team (Late st Contact Info) Description 10/08/2025 7:30 AM EDT Office Visit [facility] [address] [address] Noemi Michelle ARNP [address] [address] Health Maintenance Due Date Last Done Comments Breast Cancer Screening 1950 Pneumococcal Vaccine: 50+ Ye ars (1 of 2 - PCV) 06/09/1970 Colorectal Cancer Screening: Annual FOBT 06/09/2000 Colorectal Cancer Screening: Colonoscopy 06/09/2000 Colorectal Cancer Screening: Sigmoidoscopy 06/09/2000 Influenza Vaccine (#1) 2024 Hepatitis B Vaccine Aged Out No longe r eligible based on patient's age to complete this topic Insurance [facility] Care Teams Internet Developer Relationship Specialty Start Date End Date Gabriel Resendiz NP [address] [place] [address] PCP - General Nurse Practitioner 08/27/24
--- OUTSIDE RECORDS SUMMARY | 2025-02-20 12:14 | XMS_ITS | Clinical Summary ---
Author Organization [address] Address [address] [place] [address] Phone Care Team Providers Care Seafood Specialist Name Role Phone Jw Sotelo MD Primary Care Provider [phone] Social History Tobacco Use Types Packs/Day Years Used Date Smoking Tobacco: Never Assessed Comments Unknown Sex and Gender Information Value Date Recorded Sex Assigned at Not on file Legal Sex Female 10:45 AM EST Gender Identity Not on file Sexual Orientation Not on file Plan of Treatment Health Maintenance Due Date Last Done Comments Breast Cancer Screening 1950 Colorectal Cancer Screening: Colonoscopy 1950 DTaP,Tdap,and Td Vaccines (1 - Tdap) 06/09/1970 Pneumococcal Vaccine: 50+ Years (1 of 2 - PCV) 06/09/1970 Cholesterol Screening (Lipid Panel) 03/15/2022 Falls Risk Assessment 03/15/2022 Hepatitis C Screening 03/15/2022 Medicare Annual Wellness Visit 03/15/2022 Osteoporosis Screening (Bone Density Screening) 03/15/2022 Social Influencers of Health Screening 03/15/2022 Depression Screening 04/11/2024 Hypertension/CHF/CAD Annual BMP Blood Test 04/20/2024 COVID-19 Vaccine ( season) 2024 01/19/2023, 02/02/2021, 06/14/2020, Additional history exists Influenza Vaccine (#1) 2024 , 01/19/2023, 02/17/2022, Additional history exists RSV Immunization Adult Patients Completed 01/31/2023 Zoster Vaccines Completed 06/13/2023, 03/30/2023 HIB Vaccines Aged Out No longer eligi [...] age to complete this topic Meningococcal B Vaccine Aged Out No l onger eligible based on patient's age to complete this topic RSV Immunization Patients Under 20 months Aged Out No longer eligible based on patient's age to complete this topic Varicella Vaccines Aged Out No longer eligible based on patient's age to complete this topic Insurance [employer] [place] [id number] Care Teams Seafood Specialist Relationship Specialty Start Date End Date Jw Sotelo MD [address] [place] [address] PCP - General Centrifugal Machine Tender 05/03/17
--- OUTSIDE RECORDS SUMMARY | 2025-02-20 12:14 | XMS_ITS | Clinical Summary ---
Author Organization [facility] Address [address] [place] [address] Care Team Providers Care Resident Care Manager Rn Name Role Phone Jw Sotelo MD Primary Care Provider [phone] Allergies No known active allergies Medications Medication [...] 67 10/31/2018 8:56 AM EDT Temperature 36.3 C (97.3 F) 10/31/2018 8:56 AM EDT Respiratory Rate - - Oxygen Saturation - [...] Screening (DEXA Scan) 06/09/2016 Influenza Vaccine (#1) 2024 RSV Adult > 60+ Yrs or Pregn ant (1 - 1-dose 75+ series) 06/09/2026 Hepatitis B Vaccines Aged Out No long er eligible based on patient's age to complete this topic RSV Ped < 20 months Aged Out No longe r eligible based on patient's age to complete this topic Care Teams Resident Care Manager Rn Relationship Specialty Start Date End Date Jw Sotelo MD [address] [place], [place] [phone] PCP - General [place] Operator 05/03/17
--- OUTSIDE RECORDS SUMMARY | 2025-02-20 12:14 | XMS_ITS | Encounter Summary ---
Author Organization [facility] Address [address] [place] [address] Care Team Providers Care Wallpaper Printer Helper Name Role Phone Jw Sotelo MD Primary Care Provider [phone] Encounter Details Date Type Department Care Team (Late st Contact Info) Description 10/19/2024 Lab Requisition [facility] - Main Lab [address] [place] [address] Diana Emery MD [address] [address] Urinary tract infection, site not specified Social History Tobacco Use Types Packs/Day Years Used Date Smoking Tobacco: Never Assessed Comments Unknown Sex and Gender Information Value Date Recorded Sex Assigned at Not on file Legal Sex Female 10:45 AM EST Gender Identity Not on file Sexual Orientation Not on file documented as of this encounter Plan of Treatment Not on file documented as of this encounter Procedures Procedure Name Priority Date/Time Associated Diagnosis Comments BACTERIAL IDENTIFICATION AND SUSCEPTIBILITY, AEROBIC Routine 10/18/2024 12:00 AM EDT Urinary tract infection, site not specified documented in this encounter Results * Bacterial identification and susceptibility, aerobic (10/18/2024 12:00 AM EDT) Culture, Bacterial ID and Sensitivity Multiple bacterial morphotypes present consistent with either contamination or urogenital miller. Suggest repeat specimen, if clinically indicated. 10/19/2024 11:00 AM EDT [facility] Other Urine specimen from urethra / Unknown 10/18/2024 10/19/2024 9:58 AM EDT us Diana Emery MD LAB MICROBIOLOGY - G ENERAL ORDERABLES Final Result [facility]) [facility] [address] [place] [address], documented in this encounter Visit Diagnoses Diagnosis Urinary tract infection, site not specified documented in this encounter Care Teams Wallpaper Printer Helper Relationship Specialty Start Date End Date Jw Sotelo MD [address] [place] [address] PCP - General Stock Wetter 05/03/17 documented as of this encounter
--- OUTSIDE RECORDS SUMMARY | 2025-02-20 12:14 | XMS_ITS | Encounter Summary ---
Author Organization [facility] Address [address] [place] [address] Care Team Providers Care Raw Products Director Name Role Phone Jw Sotelo MD Primary Care Provider [phone] Encounter Details Date Type Department Care Team (Late st Contact Info) Description 08/31/2024 Lab Requisition [facility] - Main Lab [address] [place] [address] Diana Emery MD [address] [address] Dysuria Social History Tobacco Use Types Packs/Day Years [...] Procedure Name Priority Date/Time Associated Diagnosis Comments CULTURE URINE Routine 08/31/2024 11:12 AM EDT Dysuria documented in this encounter Results * Culture urine (08/31/2024 11:12 AM EDT) Culture, Urine 10,000-49,000 CFU/mL Mixed urogenital miller, no uropathogens present. Suggest repeat specimen if clinically indicated. 09/01/2024 9:55 AM EDT [facility] Urine Urine specimen from urethra / Unknown 08/31/2024 11:12 AM EDT 08/31/2024 1:49 PM EDT us Diana Emery MD LAB MICROBIOLOGY - G ENERAL ORDERABLES Final Result [facility] ([email or web address] [address] [place] [address], documented in this encounter Visit Diagnoses Diagnosis Dysuria documented in this encounter Care Teams Raw Products Director Relationship Specialty Start Date End Date Jw Sotelo MD [address] [place] [address] [address] PCP - General Delivery Of Shopping News 05/03/17 documented as of this encounter
== END 2025-02-20 10:44 | disposition home or self-care (01) ==
LOC: HO.HPS 10:20
PROVIDERS: PCP Internal Medicine; Visit Provider Hospitalist
DX: J43.2 Centrilobular emphysema (principal); R06.09 Other forms of dyspnea
CPT/HCPCS: 99214; G2211

== ENCOUNTER → 2025-02-20 10:19 | Outpatient (BNVA) | payer MEDICARE, SELFPAY | PROVIDERS: PCP Internal Medicine; Visit Provider Hospitalist | DX: J43.2 Centrilobular emphysema (principal); R06.09 Other forms of dyspnea; C34.91 Malignant neoplasm of unspecified part of right bronchus or lung; Z87.891 Personal history of nicotine dependence | CPT/HCPCS: 99212 ==